=== PATIENT | male | born 2000 | race African-American/Black ===

== ENCOUNTER 2023-11-20 17:06 | Emergency (ER) | payer SELFPAY ==
[2023-11-20 17:26] VITALS: BP 117/65; PULSE 69; RESP 18; TEMP 98.7
[2023-11-20] MEDS ORDERED: PSEUDOEPHEDRINE HCL 60 MG TABLET ONE (18:36)
[2023-11-20] MEDS: PSEUDOEPHEDRINE HCL 30 MG TABLET PO ONE (18:41)
[2023-11-20] MEDS: guaiFENesin 600 MG TABLET.ER (FP) PO ONE (18:56)
== END 2023-11-20 18:57 | disposition home or self-care (01) ==
LOC: JERFT 17:06
DX: R09.81 Nasal congestion (principal); R05.9 Cough, unspecified
CPT/HCPCS: 99283-25